=== PATIENT | male | born 1945 | race Caucasian/White ===

== ENCOUNTER → 2018-11-28 | Outpatient (CLI) | payer OTHER, MEDICARE | LOC: M SMT PRO 09:32 | PROVIDERS: ATTEND Urology | DX: R97.20 Elevated prostate specific antigen [PSA] (principal); Z53.8 Procedure and treatment not carried out for other reasons ==

== ENCOUNTER 2019-07-09 12:19 | Day surgery (SDC) | payer OTHER ==
[~2019-07-09] VITALS: Ht 188 cm; Wt 110.9 kg
[~2019-07-09 12:19] MED LIST: AMLO10TA5 PO; ARTIDRO2 OU; ATOR80TA59 PO; CHOL100029 PO; CYAN500T8 PO; FINA5TAB2 PO; FLOM0.4C39 PO; GABA-843 PO; GLYB5TA PO; INSUDET SC; LOSA100T50 PO; LR 1,000 ML IV ONE; METF10004 PO; VITA100066 PO; ceFAZolin SOD 2 GM in IV 1 EA IV ONE
[2019-07-09] MEDS ORDERED: fentaNYL 100 MCG/2 ML INJECTION (J3010) As Ordered ONE ×2 (15:21→16:52)
[2019-07-09] MEDS ORDERED: LIDOCAINE 2% INJ 100 MG/5 ML SDV (FOR ANES.) As Ordered ONE (15:21)
[2019-07-09] MEDS ORDERED: PROPOFOL 200 MG/20 ML VIAL As Ordered ONE (15:21)
[2019-07-09] MEDS ORDERED: MIDAZOLAM INJ 2 MG/2 ML VIAL (J2250) As Ordered ONE (15:21)
[2019-07-09] MEDS ORDERED: SUGAMMADEX SODIUM 500 MG/5 ML VIAL (BRIDION) As Ordered ONE (15:22)
[2019-07-09] MEDS ORDERED: ROCURONIUM BROMIDE 50 MG/5 ML VIAL As Ordered ONE (15:22)
[2019-07-09] MEDS ORDERED: ONDANSETRON 4MG/2ML VIAL (J2405) As Ordered ONE (15:22)
[2019-07-09] MEDS ORDERED: dexameTHASONE 4 MG/ML 1ML VIAL (J1100) As Ordered ONE (15:22)
[2019-07-09] MEDS ORDERED: SUCCINYLCHOLINE 100 MG/5 ML SYRINGE (J0330) As Ordered ONE (16:32)
[2019-07-09] MEDS ORDERED: fentaNYL 100 MCG/2 ML INJECTION (J3010) IV PRN (18:00)
[2019-07-09] MEDS ORDERED: METOCLOPRAMIDE INJ 10MG/2ML VIAL (J2765) IV PRN (18:00)
[2019-07-09] MEDS ORDERED: LR 1,000 ML IV SCH (18:00)
[2019-07-09] MEDS ORDERED: ONDANSETRON 4MG/2ML VIAL (J2405) IV PRN (18:00)
[2019-07-09] MEDS ORDERED: ACETAMINOPHEN TAB 650MG DOSE (2X325MG) PO PRN (18:00)
[2019-07-09] MEDS ORDERED: PERCOCET 5MG/325MG TAB PO PRN (18:00)
[2019-07-09 19:55] VITALS: BP 154/76
--- NOTE | 2019-07-09 21:09 | RO ---
DATE OF PROCEDURE: 07/09/2019 PREPROCEDURE DIAGNOSIS: Bladder tumor. POSTPROCEDURE DIAGNOSIS: Bladder tumor. PROCEDURE: Cystoscopy, transurethral resection of bladder tumor (less than 2 cm), examination under anesthesia. SURGEON: Dr. Tristian Walker TARE WORKER: None. ANESTHESIA: General. OPERATIVE INDICATIONS: This is a 73-year-old male who was found to have a bladder tumor on cystoscopy. He was brought to the operating room today for treatment. DESCRIPTION OF PROCEDURE: The patient was brought to the operating room and general anesthesia was induced. Prophylactic antibiotics were infused. He was then placed in the dorsal lithotomy position and then a bimanual digital rectal examination under anesthesia was performed. It was a notable for a moderately enlarged prostate with a possible small midline nodule. The prostate was not indurated. There were no palpable bladder masses. The bladder was freely mobile. The patient was then prepped and draped in the usual sterile fashion. At this point, a resectoscope was inserted in the urethral meatus and advanced into the bladder using visual obturator. Of note, the patient had trilobar benign prostatic hyperplasia with a fairly prominent median lobe. The bladder was then thoroughly examined, and the bladder was trabeculated. There was a tumor approximately 1-1/2 cm in size seen just lateral to the right ureteral orifice. This tumor was then completely resected using a loop. The base of resection was cauterized using the coagulation current. The tumor was then sent off for pathologic analysis. Once satisfied with hemostasis, the resectoscope was removed, and an 18-[place] Rivera catheter was inserted into the bladder. The balloon was filled with 10 mL of sterile water and then the catheter was connected to gravity drainage. This marked the conclusion of the procedure. The patient was then taken out of the dorsal lithotomy position, awakened from anesthesia and transported to the recovery room in stable condition. Estimated blood loss: 5 mL. Complications: None. Specimens: Bladder tumor. PLAN: The patient will followup in the clinic in a few days for catheter removal and pathology results. Of note, also given the small nodule in the prostate and previously found elevated prostate-specific antigen (PSA), I will likely end up setting him up for a prostate biopsy down the line, depending on what the results of his bladder tumor resection are.
== END 2019-07-09 20:00 | disposition home or self-care (01) ==
LOC: M SDC 12:19
PROVIDERS: ATTEND Urology
DX: C67.9 Malignant neoplasm of bladder, unspecified (principal); I10 Essential (primary) hypertension; E11.9 Type 2 diabetes mellitus without complications; E78.49 Other hyperlipidemia; I73.9 Peripheral vascular disease, unspecified; Z79.4 Long term (current) use of insulin; F43.10 Post-traumatic stress disorder, unspecified; N40.0 Benign prostatic hyperplasia without lower urinary tract symptoms; Z79.899 Other long term (current) drug therapy
CPT/HCPCS: 52234; 88307; J0330; J0690; J1100; J2250; J2405; J3010

== ENCOUNTER → 2024-07-09 | Outpatient (REF) | payer OTHER ==
[~2024-07-09] MED LIST changes: -AMLO10TA5 PO; +AMLO1TAB25 PO; -ARTIDRO2 OU; +ARTIDRO4 OU; +CYAN500T14 PO; -CYAN500T8 PO; +GABA-1172 PO; -GABA-843 PO; -GLYB5TA PO; +GLYB5TAB6 PO; +LOSA100T46 PO; -LOSA100T50 PO; -LR 1,000 ML IV ONE; -ceFAZolin SOD 2 GM in IV 1 EA IV ONE
== END ==
LOC: M SFHCWOUN 17:40
PROVIDERS: ATTEND Physician Assistant
DX: L97.522 Non-pressure chronic ulcer of other part of left foot with fat layer exposed (principal)

== ENCOUNTER → 2024-07-16 | Outpatient (REF) | payer OTHER ==
[2024-07-16 19:00] LABS: ALBUMIN 2.3 G/DL (3.2-5.2); BILIRUBIN,TOTAL 0.3 MG/DL (0.3-1.2); CALCIUM LEVEL 8.9 MG/DL (8.3-10.6); CREATININE FOR GFR 3.34 MG/DL (0.70-1.30); POTASSIUM SERUM 5.2 MMOL/L (3.5-5.1); TOTAL PROTEIN 7.1 G/DL (5.7-8.2)
== END ==
LOC: M SFHCWOUN 16:55
PROVIDERS: ATTEND Physician Assistant
DX: E11.621 Type 2 diabetes mellitus with foot ulcer (principal)